=== PATIENT | male | born 1995 | race Asian ===

== ENCOUNTER 2024-12-05 20:12 | Emergency (ER) | payer OTHER ==
[2024-12-05 20:29] VITALS: BP 115/81; PULSE 71; RESP 18; TEMP 98.1; BMI 29.2
[2024-12-05] MEDS ORDERED: NAPROXEN 500 MG TABLET ONE (21:30)
[2024-12-05] MEDS ORDERED: METHOCARBAMOL 500 MG TABLET ONE (21:31)
[2024-12-05] MEDS: METHOCARBAMOL 500 MG TABLET PO ONE (21:34)
[2024-12-05] MEDS: NAPROXEN 500 MG TABLET PO ONE (21:34)
== END 2024-12-05 22:50 | disposition home or self-care (01) ==
LOC: JERFT 20:12
DX: M25.512 Pain in left shoulder (principal); M54.50 Low back pain, unspecified; V43.52XA Car driver injured in collision with other type car in traffic accident, initial encounter; Y92.410 Unspecified street and highway as the place of occurrence of the external cause
CPT/HCPCS: 99283-25